=== PATIENT | female | born 1960 | race Caucasian/White ===

== ENCOUNTER 2024-06-24 11:30 | Day surgery (SDC) | payer OTHER, SELFPAY ==
[2024-06-22 13:39] VITALS: BMI 25.2
--- NOTE | 2024-06-22 15:23 | P.CONAN_ITS ---
Documented by User: Re Moyer NP 06/22/24 15:23 HPI - Anesthesia Eval Consult details Narrative: 63yo F for Upper Endoscopy and Colonoscopy [facility] Past Medical History Medical History GERD (gastroesophageal reflux disease) Urinary incontinence Hypothyroid Arthritis Fibromyalgia IBS (irritable bowel syndrome) Surgical History Surgical History Hx of varicose vein ligation and stripping History of back surgery H/O colonoscopy History of esophagogastroduodenoscopy (EGD) Social History Social History (Updated 06/22/24 @ 13:39 by Anna Thomason RN) Patient Tobacco Use Status: Current everyday Tobacco user Tobacco use type: Cigarette Cigarette Packs Per Day: 1 Cigarettes Per Day: 20 Use of substances other than those prescribed or required for medical reasons: No Are you DNR?: No Advance Directives: No Advance Directives Information Provided: Yes Meds Allergies Allergy/AdvReac Type Severity Reaction Status Date / Time amoxicillin [AMOXICILLIN] Allergy Unknown RASH Verified 06/24/24 10:25 Home Medications ?Medication ?Instructions ?Recorded ?Confirmed ?Last Taken ?Type carisoprodol 350 mg tablet 350 mg PO TID PRN pain 06/22/24 06/24/24 06/24/24 History celecoxib 200 mg capsule 200 mg PO BID 06/22/24 06/22/24 Unknown History duloxetine 30 mg capsule,delayed 30 mg PO DAILY 06/22/24 06/22/24 Unknown History release levothyroxine 75 mcg tablet 75 mcg PO DAILY 06/22/24 06/22/24 Unknown History multivitamin 1 tab PO DAILY 06/22/24 06/22/24 Unknown History omeprazole 20 mg capsule,delayed 20 mg PO DAILY 06/22/24 06/22/24 Unknown History release Exam Height,Weight and Vital Signs: Height 5 ft 4 in Weight 66.678 kg Assessment and Plan Assessment Anesthesia Assessment: Chart Reviewed Documented by User: Nicola Gutierrez MD 06/24/24 12:50 PMFSH Past Medical History Medical History GERD (gastroesophageal reflux disease) Urinary incontinence Hypothyroid Arthritis Fibromyalgia IBS (irritable bowel syndrome) Family History Family history of problems with anesthesia: No Surgical History Surgical History Hx of varicose vein ligation and stripping History of back surgery H/O colonoscopy History of esophagogastroduodenoscopy (EGD) History of Problems with Anesthesia: No Social History Social History (Updated 06/22/24 @ 13:39 by Anna Thomason RN) Patient Tobacco Use Status: Current everyday Tobacco user Tobacco use type: Cigarette Cigarette Packs Per Day: 1 Cigarettes Per Day: 20 Use of substances other than those prescribed or required for medical reasons: No Are you DNR?: No Advance Directives: No Advance Directives Information Provided: Yes Meds Allergies Allergy/AdvReac Type Severity Reaction Status Date / Time amoxicillin [AMOXICILLIN] Allergy Unknown RASH Verified 06/24/24 10:25 Home Medications ?Medication ?Instructions ?Recorded ?Confirmed ?Last Taken ?Type carisoprodol 350 mg tablet 350 mg PO TID PRN pain 06/22/24 06/24/24 06/24/24 History celecoxib 200 mg capsule 200 mg PO BID 06/22/24 06/22/24 Unknown History duloxetine 30 mg capsule,delayed 30 mg PO DAILY 06/22/24 06/22/24 Unknown History release levothyroxine 75 mcg tablet 75 mcg PO DAILY 06/22/24 06/22/24 Unknown History multivitamin 1 tab PO DAILY 06/22/24 06/22/24 Unknown History omeprazole 20 mg capsule,delayed 20 mg PO DAILY 06/22/24 06/22/24 Unknown History release Exam Airway Mallampati Class: II TM Dist: >3cm Neck ROM: Full Loose/Missing/Broken Teeth: Yes, Upper and Lower Heart: ok Lungs: ok Assessment and Plan Assessment Anesthesia Assessment: Anesthesia Plan Discussed Final Anesthetic Review Family History of Problems with Anesthesia: No History of Problems with Anesthesia: No NPO: Yes ASA Class: II Final Preanesthetic Review: No Changes in Pt Med Stat, Meds/Allgs Chart Reviewed, Consent Obtained/Reviewed and Anes Risks/Benef Reviewed Patient Risk: Low Procedure Risk: Intermediate Anesthetic Plan Anesthetic Plan: Agree w/ Assess. and Plan and TIVA Disposition: Standard PACU
--- NOTE | ~2024-06-24 | XR_ITS ---
EXAMINATION: XR CHEST CLINICAL INFORMATION: Rule out tooth aspiration COMPARISON: None available. TECHNIQUE: Frontal view of the chest was obtained. FINDINGS: vascularity. LUNGS: A round 2.2 cm alveolar density is seen in right infrahilar medial lower lobe.. No pneumothorax is seen. No radiopaque foreign body could be seen in the chest. BONES: Bony skeleton is intact. XR/XR chest 1V IMPRESSION: 1. Right infrahilar medial lower lobe alveolar density, compatible with focal airspace disease or lung mass lesion. 2. No radiopaque foreign body could be seen in the chest. 3. Follow-up PA and lateral chest x-ray is recommended.
[2024-06-24 11:41] VITALS: BMI 24.7
[2024-06-24 12:08] VITALS: BP 157/97; PULSE 84; RESP 18; TEMP 36.6; O2SAT 99
[2024-06-24] MEDS: Lactated Ringers 1,000 ML 100 ML IVCONT (12:30)
[2024-06-24 13:53] VITALS: BP 106/79; PULSE 81; RESP 24; TEMP 36.4; O2SAT 95
--- NOTE | 2024-06-24 13:56 | P.BOP_ITS ---
Brief Operative Note Date of Service: 06/24/24 Pre-op diagnosis: GERD, Knowles's, Diarrhea, Screening Post-op diagnosis: other (Hiatal hernia, Gastritis, R/O celiac disease, Diverticulosis, Internal hemorrhoids, R/O microscopic colitis) Procedure: EGD with biopsies, Colonoscopy to the cecum with biopsies Surgeon: Socrates Rivera MD Anesthesia: MAC Was an Roving Or Yarn Color Checker used for this Procedure?: No Estimated blood loss (mL): 2.0 Pathology: other (A. Descending duodenum B. Gastric antrum C. EG Junction at 36cm D. Ascending colon E. Descending colon) Condition: stable Disposition: PACU
--- NOTE | 2024-06-24 13:59 | P.ENANES_ITS ---
Anesthesia Event Note Date of Service: 07/10/24 Event Note: A CXR taken in PACU after Greta's colonoscopy to rule out possible aspiration of a tooth showed no radiopaque object in the chest compatible with a tooth. Overall, the film looked unremarkable to me, and the patient's room air SpO2 was back to baseline. She was therefore discharged home. But in reviewing the radiologist report on 07/06, the radiologist read a 2.2 cm alveolar density seen in the right infrahilar medial lower lobe. He rec'd follow-up PA and lateral chest x-ray. I [place]-texted that recommendation to Dr. Rivera on 07/06, asking him to follow up. He asked me to call Dr. Warren's office to ask them to follow up. On the morning of Jul 07, I called Dr. Warren's office ([phone]) and spoke with the office coordinator receptionist Niki and gave her the message that Greta had a CXR taken after her colonoscopy, that the radiologist saw a problem, and recommended a follow up CXR. I asked her if it might be better if I gave the message to a nurse. She said that she would give them the message and she took my cell phone number in case anyone wanted to call me back. As of 07/10/24, no one has called me back.
[2024-06-24 14:08] VITALS: BP 132/91; PULSE 78; RESP 20; O2SAT 94
[2024-06-24 14:22] VITALS: BP 155/96; PULSE 72; RESP 20; TEMP 36.3; O2SAT 94
--- NOTE | 2024-06-24 14:27 | OP_ITS ---
DATE OF SERVICE: 06/24/2024 SURGEON: Socrates Rivera MD INDICATIONS: The patient presents for evaluation of chronic gastroesophageal reflux, history of Knowles esophagus, colorectal cancer screening, and intermittent diarrhea. Full consent has been obtained from her for this, including risks of bleeding and perforation. PREOPERATIVE DIAGNOSIS: POSTOPERATIVE DIAGNOSIS: PROCEDURE PERFORMED: Esophagogastroduodenoscopy with biopsies and colonoscopy to the cecum with biopsies. ESTIMATED BLOOD LOSS: COMPLICATIONS: ANESTHESIA: Monitored anesthesia care. ASSISTANTS: SPECIMENS: PREOPERATIVE DIAGNOSES: Colorectal cancer screening, diarrhea, gastroesophageal reflux, Knowles esophagus. POSTOPERATIVE DIAGNOSES: Colorectal cancer screening, diarrhea, gastroesophageal reflux, Knowles esophagus, hiatal hernia, gastritis, rule out celiac disease, rule out microscopic colitis, diverticulosis, and internal hemorrhoids. DESCRIPTION OF PROCEDURE: The patient was placed in the left lateral decubitus position. The Olympus video gastroscope was passed in the posterior oropharynx and upper esophagus under direct vision. The scope was advanced slowly into the distal esophagus. The gastroesophageal junction appeared at 36 cm. At this level were short, less than 1 cm areas of irregularity consistent with probable Knowles mucosa. There was no evidence of any esophagitis nor any lesions. There was a small to moderate-sized hiatal hernia. The scope was advanced to the pylorus, and the duodenum was cannulated to the descending portion. The duodenum including the bulb appeared normal without mass or ulceration. Biopsies were obtained from the 2nd and 3rd portions of duodenum. The scope was withdrawn back to the stomach. The gastric antrum had some mild areas of erythema and edema but no erosions or ulceration. There was good peristalsis. Biopsies were obtained from the antrum. The scope was retroflexed, visualizing the proximal stomach carefully, which appeared normal, without any sign of mass or ulceration. The scope was straightened and withdrawn back to the esophagus. Multiple biopsies were obtained at the EG junction at 36 cm. Proximal to that, the esophageal mucosa appeared normal. The scope was withdrawn from the patient. She was turned around for the colonoscopy. The digital rectal exam revealed no abnormalities. The Olympus video pediatric colonoscope was entered into the rectum and advanced easily to the cecum. Once in the cecum, I did identify normal-appearing cecal pouch with appendiceal orifice and a normal-appearing ileocecal valve. The entire cecum and ileocecal valve appeared normal. The scope was then slowly withdrawn assessing all mucosal surfaces carefully. Preparation was excellent. I did not visualize any sign of polyps, colitis, or angiodysplasia. There was a mild amount of sigmoid diverticulosis. Random biopsies were obtained in the ascending and descending colon. In the rectum, scope was retroflexed visualizing internal hemorrhoids, but no other pathology. The rectal mucosa appeared normal. The scope was straightened and withdrawn from the patient. She tolerated both procedures well and was returned to the recovery area in stable condition. IMPRESSION: 1. Hiatal hernia, gastroesophageal reflux, history of Knowles esophagus, rule out dysplasia. 2. Mild gastric antral gastritis. 3. Rule out celiac disease. 4. Rule out microscopic colitis. 5. Diverticulosis. 6. Internal hemorrhoids. PLAN: The results of the biopsies will be checked. She was advised to continue her daily omeprazole. I would recommend a repeat upper endoscopy in 3 years for further surveillance in regard to the Knowles esophagus as long as there is no dysplasia on today's biopsies. I would recommend a repeat colonoscopy in 10 years for further screening given the negative exam and no family history of colon cancer. She will otherwise see me on a p.r.n. basis. MD JEFF Capps/JOSSUE / [id number]
== END 2024-06-24 14:42 | disposition home or self-care (01) ==
PROVIDERS: PCP Internal Medicine; Visit Provider Internal Medicine
PROC: (CPT 43239; principal; 2024-06-24 13:00)
DX: K29.60 Other gastritis without bleeding (principal); K44.9 Diaphragmatic hernia without obstruction or gangrene; K21.9 Gastro-esophageal reflux disease without esophagitis; Z87.19 Personal history of other diseases of the digestive system; Z12.11 Encounter for screening for malignant neoplasm of colon; K57.30 Diverticulosis of large intestine without perforation or abscess without bleeding; K64.8 Other hemorrhoids; F17.210 Nicotine dependence, cigarettes, uncomplicated
CPT/HCPCS: 43239; 45380; 71045; 88305; 88313; 88342; J2704